=== PATIENT | female | born 1985 | race Caucasian/White ===

== ENCOUNTER → 2016-08-05 | Outpatient (CLI) | payer OTHER ==
[~2016-08-05] MED LIST: ACET500L PO; GABA300C3 PO; IBUP200T2 PO
== END ==
LOC: M ADMPAT 11:30
PROVIDERS: ATTEND Orthopaedic Surgery
DX: M47.26 Other spondylosis with radiculopathy, lumbar region (principal)

== ENCOUNTER 2016-08-19 08:30 | Inpatient (IN) | payer OTHER ==
[2016-08-05 12:04] VITALS: BP 155/82
--- NOTE | 2016-08-13 11:19 | HPE ---
DATE OF ADMISSION: 08/19/2016 CHIEF COMPLAINT: Back pain, pain down her right leg. HISTORY OF PRESENT ILLNESS: This is a pleasant, 31-year-old female patient with progressively worsening back pain and pain radiating down her right leg. She has pain with activities of daily living as well as it affects her sleep. She has been through physical therapy, NSAIDS and injections with no lasting improvement with those treatments. She has elected for surgery for her continued symptoms. She has consented for a lumbar decompression and fusion at L3, L4 and L5 with pedicle screws as well as an interbody fusion at L4-5. X-rays of her lumbar spine are notable for a transitional vertebra at L5-S1. MRI is consistent with degenerative disc centrally at L4-5, mainly to the right side, as well as a degenerative disc at L3-4 mainly to the right side as well. There is some lateral recess spinal stenosis at L3-4. There is also minimal retrolisthesis of 4 on 5 on the plain radiographs. ALLERGIES: PENICILLIN which causes hives, though she has had prior surgeries where they have used Kefzol without difficulty. CURRENT MEDICATIONS: - gabapentin 300 mg one tablet three times a day MEDICAL HISTORY: Includes the lumbar degenerative disc disease and lateral recess stenosis as well as Raynaud's phenomenon. SURGICAL HISTORY: Include removal of an IUD, gallbladder removal and a tubal ligation. FAMILY HISTORY: Noncontributory. SOCIAL HISTORY: She does not currently smoke. She occasionally uses alcohol. She is a homemaker. REVIEW OF SYSTEMS: Denies fever or chills. Denies chest pain, shortness of breath, or cough. Denies difficulty breathing. Denies abdominal pain. Denies nausea or vomiting. Has persistent pain in her back and down her right leg with activities of daily living. Denies recent upper respiratory infection (URI) or urinary tract infection (UTI) symptoms. PHYSICAL EXAMINATION: Today, reveals a well nourished, well developed, alert female patient. She walks with a slow gait, slightly favoring her right side. Straight leg raise testing is positive on the right, unremarkable on the left. Deep tendon reflexes are 1 at the knees, trace at the right ankle, and 1 at the left ankle. There is decreased muscle strength in the EHL at 5-/5 on the right compared to the left. The remaining muscle strength is 5/5, equal and symmetrical in major muscle groups. There are well perfused bilateral lower extremities. The skin around the back is intact. No erythema, edema or ecchymosis. There is some mild diffuse tenderness around the lumbar spine without step offs or deviations. Neck is supple, without adenopathy or jugular venous distention. Lungs are clear to auscultation without rales or wheeze. Heart regular rate and rhythm. Abdomen: Bowel sounds are present. Height 5 feet 7 inches. Weight 165 pounds. Temperature 98.8. Blood pressure 150/84. Pulse 80. Respirations 21. Body mass index (BMI) is 25.8. LABORATORY DATA: Nasal and sinus cultures normal jeanine. Hemoglobin 13.6. IMPRESSION: Right lower extremity radiculopathy. 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 Lumbar degenerative disc disease, primary L3-4 and L4-5. PLAN: She is consented for an interbody fusion at L4-5 as well as a lumbar decompression and fusion at L3, L4 and L5 with the use of pedicle screws and iliac crest graft.
[~2016-08-19] VITALS: Ht 170.2 cm; Wt 70.0 kg
[2016-08-19] MEDS ORDERED: GABAPENTIN 300 MG CAP PO ONE (09:00)
[2016-08-19] MEDS ORDERED: PERCOCET 5MG/325MG TAB PO ONE (09:00)
[2016-08-19] MEDS ORDERED: CelecoXIB (CeleBREX) 100 MG CAP PO ONE (09:00)
[2016-08-19] MEDS ORDERED: LR 1,000 ML IV SCH ×2 (09:00→17:15)
[2016-08-19] MEDS ORDERED: THROMBIN SOLN 20,000 UNITS KIT As Ordered ONE (10:30)
[2016-08-19] MEDS ORDERED: VANCOMYCIN HCL 500 MG/10 ML VIAL (J3370) As Ordered ONE (10:30)
[2016-08-19] MEDS ORDERED: BUPIVACAINE/EPIN 0.25% 30 ML VIAL As Ordered ONE (10:30)
[2016-08-19] MEDS ORDERED: BACITRACIN PWD 50,000 UNITS VIAL As Ordered ONE (10:31)
[2016-08-19] MEDS ORDERED: fentaNYL 250 MCG/5 ML INJECTION (J3010) As Ordered ONE (11:42)
[2016-08-19] MEDS ORDERED: dexameTHASONE 4 MG/ML 1ML VIAL (J1100) As Ordered ONE (11:42)
[2016-08-19] MEDS ORDERED: PROPOFOL 500 MG/50 ML VIAL As Ordered ONE (11:42)
[2016-08-19] MEDS ORDERED: MIDAZOLAM INJ 2 MG/2 ML VIAL (J2250) As Ordered ONE (11:42)
[2016-08-19] MEDS ORDERED: METOCLOPRAMIDE INJ 10MG/2ML VIAL (J2765) As Ordered ONE (11:43)
[2016-08-19] MEDS ORDERED: ONDANSETRON 4MG/2ML VIAL (J2405) As Ordered ONE (11:43)
[2016-08-19] MEDS ORDERED: GLYCOPYRROLATE INJ 0.2 MG/ML 2 ML VIAL As Ordered ONE (11:43)
[2016-08-19] MEDS ORDERED: NEOSTIGMINE 1MG/ML 5 ML SYRINGE (J2710) As Ordered ONE (11:43)
[2016-08-19] MEDS ORDERED: ROCURONIUM BROMIDE 50 MG/5 ML VIAL As Ordered ONE (11:43)
[2016-08-19] MEDS ORDERED: PHENYLephrine HCL 500 MCG/5 ML (100MCG/ML) SYRINGE (J2370) As Ordered ONE ×2 (11:45→13:46)
[2016-08-19] MEDS ORDERED: ePHEDrine SULFATE 25 MG/5 ML(5MG/ML) SYRINGE As Ordered ONE ×2 (11:45→13:46)
--- NOTE | 2016-08-19 13:48 | REP ---
PARTIAL LUMBAR SPINE, ONE VIEW: HISTORY: Spondylosis. A single portable lateral radiograph was obtained. A metal probe was present overlying the neural arch at the L4-5 level. Signed by Dejon Cuba MD 08/19/2016 02:54 P
[2016-08-19] MEDS ORDERED: fentaNYL 100 MCG/2 ML INJECTION (J3010) As Ordered ONE (14:32)
[2016-08-19] MEDS ORDERED: ceFAZolin 2 GM/D5W 50 ML IV BAG (J0690) As Ordered ONE (15:30)
[2016-08-19] MEDS ORDERED: DESFLURANE 240 ML INHALANT As Ordered ONE (15:52)
[2016-08-19] MEDS ORDERED: HYDROmorphone HCL 2 MG/ML 1ML VIAL (J1170) As Ordered ONE (15:58)
[2016-08-19] MEDS ORDERED: PROPOFOL 200 MG/20 ML VIAL As Ordered ONE (16:17)
--- NOTE | 2016-08-19 16:30 | REP ---
PARTIAL LUMBAR SPINE, TWO VIEWS: HISTORY: Spondylosis. COMPARISON: 08/19/2016. The patient is status L4-5 anterior and L3 to L5 posterior spinal fusion. Bone graft material is present anteriorly and metal rods and pedicle screws posteriorly. There is anatomic alignment of the lumbar spine. Fluoro time: 2 minutes 13 seconds. IMPRESSION: The patient is status post L4-5 anterior and L3 to L5 posterior spinal fusion. There is anatomic alignment. Signed by Dejon Cuba MD 08/19/2016 04:32 P
[2016-08-19] MEDS: HYDROmorphone HCL 1 MG/ML SYRINGE (J1170) IV PRN ×2 (17:14→17:23)
[2016-08-19] MEDS ORDERED: fentaNYL 100 MCG/2 ML INJECTION (J3010) IV PRN (17:15)
[2016-08-19] MEDS ORDERED: ONDANSETRON 4MG/2ML VIAL (J2405) IV PRN ×2 (17:15→20:00)
[2016-08-19] MEDS: D5W/LR 1,000 ML IV SCH (17:45)
[2016-08-19] MEDS ORDERED: PERCOCET 5MG/325MG TAB PO PRN (17:45)
[2016-08-19] MEDS ORDERED: HYDROmorphone HCL 1 MG/ML SYRINGE (J1170) IV PRN (17:45)
[2016-08-19 18:00] VITALS: BP 129/67
[2016-08-19 18:30] VITALS: BP 118/61
[2016-08-19 19:30] VITALS: BP 116/66
[2016-08-19] MEDS ORDERED: PROMETHAZINE INJ 25 MG/ML VIAL (J2550) IV ONE (20:00)
[2016-08-19] MEDS: PERCOCET 5MG/325MG TAB PO PRN (20:14)
[2016-08-19] MEDS: ASCORBIC ACID 500 MG TAB PO SCH (20:14)
[2016-08-19] MEDS: GABAPENTIN 300 MG CAP PO SCH (20:14)
[2016-08-19 20:30] VITALS: BP 124/75
[2016-08-19 21:30] VITALS: BP 123/71
[2016-08-19 22:30] VITALS: BP 119/66
--- NOTE | 2016-08-20 00:23 | RO ---
DATE OF PROCEDURE: 08/19/2016 PREOPERATIVE DIAGNOSIS: Right lower extremity radiculopathy and lumbar spondylosis at L3-4 and L4-5 above A sacralized motion segment at L5-S1. POSTOPERATIVE DIAGNOSIS: Right lower extremity radiculopathy and lumbar spondylosis at L3-4 and L4-5 above A sacralized motion segment at L5-S1. PROCEDURE PERFORMED: 1. Right unilateral laminectomy L3, L4 additional level, L5 additional level. This was for decompression of the thecal sac and nerve roots. 2. Posterior interbody fusion including endplate preparation at L4-5, a right TLIF with intertransverse combined technique. 3. Additional level L3-4 with intertransverse technique. 4. Posterior segmental instrumentation L3, L4, L5, bilateral pedicle screw instrumentation. 5. Application of intervertebral biomechanical device L4-5, right iliac crest bone graft harvest through a separate fascial incision, morselized iliac crest graft. SURGEON: Dr. Edwin Katz SENIOR TECHNICAL SPECIALIST: Erasmo Alexander PA-C ANESTHESIA: General. ESTIMATED BLOOD LOSS: 150 mL. REPLACED: Crystalloid. No complications. COMPONENTS USED: Include the K2M [place] System, pedicle screws size 40 mm x 6.5 mm x 6 pedicle screws; three on the left, three on the right, a 65 mm connecting isaac utilized bilaterally and the appropriate end caps. We also used 15 mL of cancellous crushed bone graft and 10 mL of demineralized bone matrix putty. Additionally, we utilized a titanium 10 x 32 mm K cage implant. INDICATIONS: Right lower extremity radicular pain and chronic back pain, abnormal motion segment L5-S1, spondylosis appreciated at L3-4, L4-5 with lateral recess spinal stenosis at both levels, but especially at L4-5. CONSENT: Reviewed in detail with the patient, including a yamileth discussion of the procedure proposed, alternatives including doing nothing, and risks, including but not limited to pain, failure, infection, bleeding, blood loss, incomplete relief of symptoms, paralysis, nerve injury, blood clots and other problems. The patient wants to proceed. DESCRIPTION OF PROCEDURE: Identified in the holding area, site and side verified, brought to the operating room. General endotracheal anesthesia was administered. She was positioned on the Lamin frame for exposure of the lumbar spine. The knees were slightly flexed. Once I and the certified ophthalmic technologist were comfortable with the patient's positioning, she was then sterilely prepped and draped for exposure. Next, I began the procedure on the patient's right side using loop and headlamp magnification. Mr. Alexander stood on the patient's left side, but we did alternate positions through stratton portions of the case. Next. Mr. Alexander outlined the incision with a marking pen and based on bony landmarks. This line was infiltrated with quarter Marcaine with epinephrine. I made the incision using a 10 blade knife, developed down through skin and subcuticular tissues to the posterior lumbar fascia. Next, crossing fibers were appreciated and the dissection continued down the spinous process of L4 andL5, down to the L4-5 interspace on the patient's right side. I exposed the L5 lamina, and I drilled a divot 5 mm deep in the L4 lamina. This allowed me to place a Cárdenas-Kong probe in the divot, and we then obtained cross-table lateral x-rays to verify our levels. Next, Mr. Alexander and I switched sides. He retracted with Richmond retractors to allow me to expose up to the transverse processes of L3, L4 and L5. Next, I dissected on the patient's contralateral left side, spinous processes in the midline and were preserved. Dissection continued over the facet complexes of L3-4 and L4-5 on the patient's left side, and out over the transverse processes of L3, L4 and L5. Next, at this stage, the Shadow-Line retractor was utilized to retract on the patient's right side. My loop and headlamp were exchanged and the operating microscope was sterilely draped and brought in for additional portion of the procedure. This facilitated safe use of the high-speed bur and less invasive procedure. I removed the posterior lamina of L5 and L4 and facet complex of L5 and L4 using a Leksell, and this was retained for bone graft. Next, once this was accomplished, under the microscope, I utilized the high-speed bur to implement a right unilateral laminectomy, beginning at the lamina of L4 and continuing superiorly through the bare area of L4 to the L3-4 level, medially to the medial 30% of the L3-4 facet complex on the right and inferiorly continuing through and into the lamina of L5 to the bare area so that the L5 pedicle, L4 pedicle and L3 pedicles could be palpated. Next, lateral recess was decompressed using #2 Kerrisons. Particularly at L4-5, the L5 traversing nerve root was quite impinged by bifurcated facet as well as disc osteophyte complex. Once this portion of the decompression was accomplished, we utilized Cárdenas-Kong and bipolar cautery for hemostasis and swept the nerve root medially to allow exposure of the disc, which was bulging at this level. Next, annulotomy was accomplished by myself using an 11 blade while Mr. Alexander retracted using Anderson retractors. Disc material was removed using pituitaries followed by use of conical reamers to clear the interspace at L4-5 of additional disc material, which was again removed using an additional pituitary. Next, we utilized the conical reamers through a size 10. Next, irrigation was accomplished. At this stage, the microscope was moved back from the operative field. Next, we then obtained iliac crest bone graft from the patient's right posterior-superior iliac crest, which was accomplished through a separate fascial incision, packed with dry Gelfoam after irrigation and closed with an interrupted stitch. Next, once this was accomplished, we elected to place pedicle screws in the patient's left side so that we could distract across the interspace. Mr. Alexander retracted with Richmond, and I utilized the drill to drill at the mammillary process of L3, L4 and L5. I placed probes in this divot at L3, L4 and L5 and obtained an AP fluoroscopic image verifying the inferolateral aspect of the pedicle at these three levels. At this stage, we turned the fluoroscope to the lateral position, and I cannulated the pedicle of L5 with the pedicle finder, followed by palpation with a ball-tipped guide, followed by tapping with a 5-5 tap, followed by palpation again with the ball-tipped guide, verifying pedicle rose and anterior bone palpation. And I placed a 40 mm pedicle screw on the left side at L5. Similarly, L4 pedicle screw was placed and L3 pedicle screw was placed. Position of the screws verified fluoroscopically. Next, I placed a 65 mm connecting isaac between the pedicle screws, and I distracted across the L4-5 level. The distraction was locked, and then we turned our attention back to the patient's right laminectomy defect. Next, Mr. Alexander retracted with Anderson, and I again explored the interspace at L4-5 and removed some additional disc material and abraded the endplate. Next, once this was accomplished under fluoroscopic visualization, we placed the 10 mm sound device, which seemed to fit appropriately, predicting a 32 mm x 10 graft. We obtained a 32 x 10 mm cage, and this was packed with morselized iliac crest bone graft and coated with demineralized bone matrix putty. Additionally, we packed this space with iliac crest bone graft mixed with demineralized bone matrix putty and spread this through the disc space using a equipment associate. Next, the cage was then implanted, tapping it into place at L4-5 and visualizing placement fluoroscopically. Next, once the cage was placed and in good position, we removed the handle and then we turned attention to the patient's left side. The end caps were loosened, the L4-5 level was placed in slight compression, L3-4 in slight compression. Next, transverse processes were decorticated as well as facet complexes, and we placed iliac crest bone graft and local graft and demineralized bone matrix putty, as well as crushed cancellus between the transverse processes of L3, L4 and L5, as well as additional demineralized bone matrix putty and local bone graft in the interlaminar space between L3, L4 and L5. Next, this had been accomplished after irrigation, and also I placed vancomycin crystals over the screw heads of the instrumentation. Next, retractors were then removed. Attention was turned to the patient's contralateral right side with Mr. Alexander exposing with Richmond, and I did cannulate and place pedicle screws at L3, L4 and L5 in the same fashion, including using the ball-tipped guide to verify screw placement and cortical opposition long along this tract, including anteriorly. I utilized 40 mm x 6.5 screws at every level. On the right side, 65 mm connecting isaac was utilized and again, we compressed across L4-5 and to a lesser degree L3-4. These were locked using the torque, counter torque which was accomplished this way bilaterally at each pedicle screw head. Next, again, the remaining bone graft was placed in the intertransverse space after the transverse processes were decorticated. This included iliac crest graft, local graft, donor graft and some remaining demineralized bone matrix putty. Next, during pedicle screw placement on the patient's right side, because of the laminectomy defect I was able to palpate the pedicles to assist in placement. Next, midline irrigation was accomplished, the interspace was explored, again free from debris. The remaining vancomycin crystals were sprinkled over the instrumentation, retractors were removed. Posterior lumbar fascia was reapproximated with interrupted stitch followed by the deep Abundio fascia and deep dermis and a Prineo dressing was utilized on skin at the conclusion of the case. The patient was then moved to hospital bed, extubated, moved to recovery room in good condition. For further details, please refer to the medical record.
[2016-08-20] MEDS: PERCOCET 5MG/325MG TAB PO PRN ×4 (00:34→20:03)
[2016-08-20 02:00] VITALS: BP 112/61
[2016-08-20] MEDS: D5W/LR 1,000 ML IV SCH ×3 (03:45→20:35)
[2016-08-20 06:00] VITALS: BP 104/57
[2016-08-20] MEDS: ASCORBIC ACID 500 MG TAB PO SCH ×2 (08:47→20:03)
[2016-08-20] MEDS: MOM 30ML SUSPENSION UDC PO SCH (08:47)
[2016-08-20] MEDS: ASPIRIN 81 MG ENTERIC TAB PO SCH (08:48)
[2016-08-20] MEDS: GABAPENTIN 300 MG CAP PO SCH ×2 (08:48→20:03)
[2016-08-20 10:00] VITALS: BP 105/59
--- NOTE | 2016-08-20 11:57 | REP ---
Clinical: Status post fixation. Technique: AP and lateral views of the lumbosacral spine. Findings: The patient is status post posterior fixation at the L4, L5, and S1 levels with prosthetic disc at the L5-S1 level. Alignment is maintained. Impression: Status post posterior fixation. Signed by Sebastian Rahman MD 08/20/2016 11:48 A
[2016-08-20] MEDS: HYDROmorphone HCL 1 MG/ML SYRINGE (J1170) IV PRN ×3 (12:52→21:59)
[2016-08-20 14:00] VITALS: BP 122/60
[2016-08-20] MEDS: ACETAMINOPHEN TAB 650MG DOSE (2X325MG) PO PRN (18:56)
[2016-08-20] MEDS: CYCLOBENZAPRINE 10 MG TAB PO PRN (20:35)
[2016-08-20 22:00] VITALS: BP 102/54
[2016-08-21] MEDS: PERCOCET 5MG/325MG TAB PO PRN ×5 (00:13→20:29)
[2016-08-21] MEDS: HYDROmorphone HCL 1 MG/ML SYRINGE (J1170) IV PRN ×2 (04:13→21:51)
[2016-08-21 06:00] VITALS: BP 93/54
[2016-08-21] MEDS: CYCLOBENZAPRINE 10 MG TAB PO PRN (06:35)
[2016-08-21] MEDS: ASPIRIN 81 MG ENTERIC TAB PO SCH (08:19)
[2016-08-21] MEDS: ASCORBIC ACID 500 MG TAB PO SCH ×2 (08:19→20:28)
[2016-08-21] MEDS: GABAPENTIN 300 MG CAP PO SCH ×2 (08:19→20:28)
[2016-08-21] MEDS: MOM 30ML SUSPENSION UDC PO SCH (08:19)
[2016-08-21] MEDS ORDERED: MAGNESIUM CITRATE 300 ML BTL PO ONE (08:45)
[2016-08-21] MEDS ORDERED: MAGNESIUM CITRATE 300 ML BTL PO PRN (09:00)
[2016-08-21] MEDS: D5W/LR 1,000 ML IV SCH (09:45)
[2016-08-21 14:00] VITALS: BP 99/50
[2016-08-21] MEDS: ACETAMINOPHEN TAB 650MG DOSE (2X325MG) PO PRN (18:13)
[2016-08-21 22:00] VITALS: BP 111/58
[2016-08-22] MEDS: PERCOCET 5MG/325MG TAB PO PRN ×3 (01:14→11:56)
[2016-08-22 06:00] VITALS: BP 97/50
[2016-08-22] MEDS: ASCORBIC ACID 500 MG TAB PO SCH (08:26)
[2016-08-22] MEDS: ASPIRIN 81 MG ENTERIC TAB PO SCH (08:26)
[2016-08-22] MEDS: GABAPENTIN 300 MG CAP PO SCH (08:26)
[2016-08-22] MEDS: MOM 30ML SUSPENSION UDC PO SCH (09:00)
== END 2016-08-22 12:05 | disposition home or self-care (01) | DRG 304 ==
LOC: M OR 08:44 → M MS5PR 18:00 → M PED 08-20 17:56 → M MS5PR 08-20 18:01
PROVIDERS: ADMIT Orthopaedic Surgery; ATTEND Orthopaedic Surgery
PROC: 0QB20ZZ Excision of Right Pelvic Bone, Open Approach (ICD-10-PCS; 2016-08-19)
PROC: 0SB20ZZ Excision of Lumbar Vertebral Disc, Open Approach (ICD-10-PCS; 2016-08-19)
PROC: 0SG10A1 (ICD-10-PCS; principal; 2016-08-19 10:45)
DX: M51.16 Intervertebral disc disorders with radiculopathy, lumbar region (principal); I73.00 Raynaud's syndrome without gangrene; Z88.0 Allergy status to penicillin; Z79.899 Other long term (current) drug therapy

== ENCOUNTER 2019-05-19 18:43 | Emergency (ER) | payer OTHER ==
[~2019-05-19] VITALS: Ht 170.2 cm; Wt 71.1 kg
[~2019-05-19 18:43] MED LIST changes: +GABA-843 PO; -GABA300C3 PO
[2019-05-19] MEDS ORDERED: IBUP1TAB7 PO (18:51)
[2019-05-19] MEDS ORDERED: ACETAMINOPHEN 325 MG TAB PO ONE (20:30)
[2019-05-19] MEDS ORDERED: KETOROLAC 60 MG/2 ML VIAL (J1885) IM ONE (20:30)
[2019-05-19 20:51] LABS: BASO # 0.1 10^3/uL (0.0-0.2); BASO % 0.9 % (0.0-1.0); EOS # 0.2 10^3/uL (0.0-0.5); EOS % 2.1 % (0.0-3.0); HEMATOCRIT 41.2 % (36.0-47.0); HEMOGLOBIN 13.2 g/dl (12.0-15.5); LYMPH # 3.5 10^3/uL (1.5-5.0); LYMPH % 34.8 % (24.0-44.0); MEAN CORPUSCULAR HEMOGLOBIN 31.1 pg (27.0-33.0); MEAN CORPUSCULAR VOLUME 96.9 fl (80.0-96.0); MONO # 0.8 10^3/uL (0.0-0.8); MONO % 7.9 % (0.0-5.0); NEUTROPHILS # 5.4 10^3/uL (1.5-8.5); NEUTROPHILS % 53.9 % (36.0-66.0); PLATELET COUNT, AUTOMATED 357 10^3/uL (150-450); RED BLOOD COUNT 4.25 10^6/uL (4.00-5.40)
[2019-05-19 21:08] LABS: ERYTHROCYTE SEDIMENTATION RATE 8 mm/hr (0-20)
[2019-05-19] MEDS ORDERED: KETO10TAB PO (22:37)
[2019-05-19 22:48] VITALS: BP 110/58
--- NOTE | 2019-05-20 08:12 | REP ---
Bilateral foot series: AP and lateral views of each foot. History: Increased pain, difficulty weightbearing. Findings: AP and lateral views of the right foot demonstrate an accessory ossicle adjacent to the lateral malleolus. This is well corticated. No fracture or subluxation is seen. Joint spaces are preserved. Periarticular soft tissues are unremarkable. AP and lateral views of the left foot demonstrate normal bones, joints, and soft tissues as well. Impression: No acute abnormality. Electronically Signed by Joseph Bacon MD 05/20/2019 08:03 A
--- NOTE | 2019-05-20 08:44 | REP ---
Bilateral ankle series: Eight views. History: Increased pain. Difficulty weightbearing. Findings: Four views of each ankle are obtained. Ankle mortise is intact bilaterally. There are two well corticated accessory ossicles versus old avulsion fracture fragments adjacent to the fibular tip on the right. No acute fracture is seen. There is Achilles calcaneal spurring on the left. Bones, joints, and soft tissues are otherwise unremarkable. Impression: No acute abnormality. Achilles calcaneal spur on the left and old accessory ossicles adjacent to the fibular tip on the right. Electronically Signed by Joseph Bacon MD 05/20/2019 08:51 A
== END 2019-05-19 22:49 | disposition home or self-care (01) ==
LOC: M ED 18:43
DX: M79.671 Pain in right foot (principal); M79.672 Pain in left foot; I73.00 Raynaud's syndrome without gangrene; Z88.0 Allergy status to penicillin; Z97.5 Presence of (intrauterine) contraceptive device; F17.210 Nicotine dependence, cigarettes, uncomplicated
CPT/HCPCS: 36415; 73610; 73620; 80047; 84702; 85025; 85379; 85652; 86140; 96372; 99283; J1885

== ENCOUNTER → 2019-07-05 | Outpatient (REF) | payer OTHER ==
[~2019-07-05] MED LIST changes: +IBUP1TAB7 PO; +KETO10TAB PO
[2019-07-05 12:47] LABS: APPEARANCE, URINE CLEAR (CLEAR); BACTERIA, URINE AUTO NEGATIVE (NEGATIVE); BILIRUBIN, URINE AUTO NEGATIVE (NEGATIVE); BLOOD, URINE BLOOD NEGATIVE (NEGATIVE); COLOR, URINE STRAW (YELLOW); GLUCOSE, URINE (UA) AUTO NEGATIVE (NEGATIVE); KETONE, URINE AUTO NEGATIVE (NEGATIVE); LEUKOCYTE ESTERASE, URINE AUTO NEGATIVE (NEGATIVE); NITRITE, URINE AUTO NEGATIVE (NEGATIVE); PROTEIN, URINE AUTO NEGATIVE (NEGATIVE); RBC, URINE AUTO 0 /HPF (0-3); SPECIFIC GRAVITY URINE AUTO 1.005 (1.002-1.035); SQUAMOUS EPITHELIAL CELL UR AU 0 /HPF (0-6); UROBILINOGEN, URINE AUTO 0.2 mg/dL (0.0-2.0); WBC, URINE AUTO 1 /HPF (0-3)
[2019-07-05 12:58] LABS: BASO # 0.1 10^3/uL (0.0-0.2); BASO % 1.1 % (0.0-1.0); EOS # 0.2 10^3/uL (0.0-0.5); EOS % 1.8 % (0.0-3.0); HEMATOCRIT 36.5 % (36.0-47.0); HEMOGLOBIN 11.8 g/dl (12.0-15.5); LYMPH # 1.7 10^3/uL (1.5-5.0); LYMPH % 19.6 % (24.0-44.0); MEAN CORPUSCULAR HEMOGLOBIN 31.4 pg (27.0-33.0); MEAN CORPUSCULAR HGB CONC 32.3 g/dl (32.0-36.5); MEAN CORPUSCULAR VOLUME 97.1 fl (80.0-96.0); MONO # 0.4 10^3/uL (0.0-0.8); NEUTROPHILS # 6.1 10^3/uL (1.5-8.5); NEUTROPHILS % 72.3 % (36.0-66.0); PLATELET COUNT, AUTOMATED 360 10^3/uL (150-450); RED BLOOD COUNT 3.76 10^6/uL (4.00-5.40); WHITE BLOOD COUNT 8.4 10^3/uL (4.0-10.0)
[2019-07-05 13:08] LABS: ALBUMIN 3.8 GM/DL (3.2-5.2); ALT/SGPT 17 U/L (12-78); BILIRUBIN,TOTAL 0.3 MG/DL (0.2-1.0); BLOOD UREA NITROGEN 8 MG/DL (7-18); C REACTIVE PROTEIN QUANTITATIV < 0.30 MG/DL (0.00-0.30); CALCIUM LEVEL 8.7 MG/DL (8.5-10.1); CARBON DIOXIDE LEVEL 28 MEQ/L (21-32); CHLORIDE LEVEL 108 MEQ/L (98-107); COMPLEMENT C3 118 MG/DL (90-180); COMPLEMENT C4 24 MG/DL (10-40); CREATININE FOR GFR 0.59 MG/DL (0.55-1.30); GLOMERULAR FILTRATION RATE > 60.0 (>60); GLUCOSE, FASTING 77 MG/DL (70-100); POTASSIUM SERUM 4.4 MEQ/L (3.5-5.1); RHEUMATOID FACTOR QUANT < 10.0 IU/ML (<15.0); SODIUM LEVEL 142 MEQ/L (136-145); TOTAL PROTEIN 6.9 GM/DL (6.4-8.2)
[2019-07-05 13:10] LABS: THYROID PEROXIDASE ANTIBODY < 28.0 U/ML (<60.0)
[2019-07-05 13:22] LABS: HEPATITIS B SURFACE ANTIGEN NEGATIVE (NEGATIVE)
[2019-07-05 13:30] LABS: ERYTHROCYTE SEDIMENTATION RATE 28 mm/hr (0-20)
[2019-07-05 13:50] LABS: HEPATITIS C VIRUS ABY INDEX < 0.0 INDEX (<0.8)
[2019-07-05 13:51] LABS: HIV 1&2 SCREEN CENTAUR NEGATIVE (NEGATIVE)
== END ==
LOC: M SFHCRHEU 09:38
PROVIDERS: ATTEND Internal Medicine
DX: M06.4 Inflammatory polyarthropathy (principal); I73.00 Raynaud's syndrome without gangrene; R79.89 Other specified abnormal findings of blood chemistry

== ENCOUNTER → 2019-07-05 | Outpatient (CLI) | payer OTHER ==
--- NOTE | 2019-07-06 02:42 | REP ---
Clinical: Inflammatory arthritis . Comparison: None. Technique: PA and lateral. Findings: The mediastinum and cardiac silhouette are normal. The lung magana are clear and without acute consolidation, effusion, or pneumothorax. The skeletal structures are intact and normal. Impression: 1. No acute cardiopulmonary process. Electronically Signed by Sebastian Rahman MD 07/06/2019 02:34 A
== END ==
LOC: M WUC 10:23
PROVIDERS: ATTEND Internal Medicine
DX: M06.4 Inflammatory polyarthropathy (principal)

== ENCOUNTER → 2019-09-16 | Outpatient (REF) | payer OTHER | LOC: M LAB REF 17:22 | PROVIDERS: ATTEND Dermatology | DX: R21 Rash and other nonspecific skin eruption (principal) ==